=== PATIENT | male | born 1960 | race Caucasian/White ===

== ENCOUNTER 2017-05-07 09:31 | Day surgery (SDC) | payer OTHER ==
[~2017-05-07] VITALS: Ht 193 cm; Wt 163.6 kg
[~2017-05-07 09:31] MED LIST: ASPI81 PO; GABA-531 PO; IBUP-2071 PO; INSLAN SQ; INSNOV SQ; LISI-662 PO; SODIUM CHLORIDE 0.9% 1,000 ML IV ONE; [UNRECOGNIZED DRUG - CODE] PO
[2017-05-07] MEDS ORDERED: PROPOFOL 1% 20 ML VIAL IVP ONE (09:32)
[2017-05-07] MEDS ORDERED: SODIUM CHLORIDE 0.9% 1,000 ML IV ONE (09:48)
[2017-05-07 10:23] LABS: GLUCOMETER DEV NAME(LOC) SDS 5; GLUCOSE,POINT OF CARE 316 MG/DL (70-110)
== END 2017-05-07 12:10 | disposition home or self-care (01) ==
LOC: SURGERY 09:31
PROVIDERS: ATTEND Internal Medicine Gastroenterology
DX: K64.8 Other hemorrhoids (principal); G89.29 Other chronic pain; E66.01 Morbid (severe) obesity due to excess calories; E11.40 Type 2 diabetes mellitus with diabetic neuropathy, unspecified; I10 Essential (primary) hypertension; Z68.41 Body mass index [BMI] 40.0-44.9, adult; Z87.891 Personal history of nicotine dependence; Z72.89 Other problems related to lifestyle; Z79.4 Long term (current) use of insulin; Z79.01 Long term (current) use of anticoagulants; Z79.52 Long term (current) use of systemic steroids; Z98.890 Other specified postprocedural states; Z79.82 Long term (current) use of aspirin; Z79.1 Long term (current) use of non-steroidal anti-inflammatories (NSAID); Z79.899 Other long term (current) drug therapy
CPT/HCPCS: 45378; 82962; J2704; J7030